=== PATIENT | male | born 1990 | race Caucasian/White ===

== ENCOUNTER 2017-05-24 21:26 | Emergency (ER) | payer SELFPAY ==
[~2017-05-24] VITALS: Ht 167.6 cm; Wt 54.6 kg
[~2017-05-24 21:26] MED LIST: KEFLEX500 MG PO; NOHOMEMEDS; VICODIN 5-3001 EACH PO
[2017-05-24 23:59] VITALS: BP 119/66
== END 2017-05-24 23:55 | disposition home or self-care (01) ==
LOC: EME 21:26
PROVIDERS: Physician Assistant
DX: S00.83XA Contusion of other part of head, initial encounter (principal); J06.9 Acute upper respiratory infection, unspecified; V99.XXXA Unspecified transport accident, initial encounter; F17.200 Nicotine dependence, unspecified, uncomplicated
CPT/HCPCS: 87502; 87651 90; 99281; 99284